=== PATIENT | male | born 1985 | race Two or more races ===

== ENCOUNTER 2018-04-13 10:23 | Emergency (ER) | payer OTHER ==
[~2018-04-13] VITALS: Ht 162.6 cm; Wt 63.5 kg
[2018-04-13 10:45] VITALS: BP 125/70
--- NOTE | 2018-04-13 10:54 | NUR ---
ED Nurse Note: pt walked in to ED due to injured on rigth lateral thigh by saw at work. deep and wide laceration noted. no active bleeding noted. irrigation done by EMT with NS without complication. AAO x4. respirations even and non-labored noted. will wait for the further order.
[2018-04-13] MEDS ORDERED: Lidocaine 1% 10mg/ml/Epi 0.005mg/ml 30ml vial INJ ONE (11:45)
[2018-04-13] MEDS ORDERED: Tetanus/Diptheria/Pertussis Vaccine 0.5ml Syr IM ONE (12:30)
--- NOTE | 2018-04-13 12:33 | Diagnostic Imaging Report ---
Indications: Pain Technique: Two views of the right femur Comparison: None Findings: No acute fractures. No dislocations. The joint spaces are preserved. There is a tiny superior pole patellar osteophyte. Impression: No acute process
[2018-04-13] MEDS ORDERED: Bacitracin Oint UD TOPIC ONE ×2 (13:39→13:45)
[2018-04-13] MEDS ORDERED: BACITRACIN-P28.35 GM TP (13:53)
[2018-04-13] MEDS ORDERED: CEPHALEXIN500 MG ORAL (13:53)
[2018-04-13] MEDS ORDERED: IBUPROFEN600 MG ORAL (13:53)
--- NOTE | 2018-04-13 13:54 | Emergency Room Report ---
History of Present Illness General Chief Complaint: Laceration Source: Patient, Family Member Present Illness HPI 33-year-old male patient presents ER complaining of laceration on right thigh. Reports sustained laceration while at work using a skill saw earlier today. Reports this is a Workmen's Compensation case. Reports he cut his right leg. Reports bleeding well controlled at this time. Denies history of HIV or hepatitis. Denies history of blood disease. Reports is not up-to-date on tetanus vaccination. Denies other aggravating or relieving factors. Denies pain with ambulation. Allergies: Coded Allergies: No Known Allergies (Unverified , 04/13/18) Patient History Past Medical History: see triage record Reviewed Nursing Documentation: PMH: Agreed; PSxH: Agreed Nursing Documentation-PMH Past Medical History: No Stated History Review of Systems All Other Systems: negative except mentioned in HPI Physical Exam Vital Signs Date Time Temp Pulse Resp B/P (MAP) Pulse Ox O2 Delivery O2 Flow Rate FiO2 04/13/18 10:37 97.9 54 16 125/70 97 Room Air Sp02 EP Interpretation: reviewed, normal General Appearance: well appearing, no apparent distress, alert, GCS 15, non- toxic Head: normocephalic, atraumatic Eyes: bilateral eye normal inspection, bilateral eye PERRL ENT: hearing grossly normal, normal pharynx, no angioedema, normal voice, uvula midline, moist mucus membranes Neck: full range of motion Respiratory: lungs clear, normal breath sounds, no rhonchi, no respiratory distress, no accessory muscle use, no wheezing, speaking full sentences Cardiovascular #1: regular rate, rhythm, no edema Cardiovascular #2: 2+ dorsalis pedis (R), 2+ dorsalis pedis (L) Musculoskeletal: back normal, digits/nails normal, gait/station normal, normal range of motion, non-tender Neurologic: alert, oriented x3, responsive, motor strength/tone normal, sensory intact Skin: laceration - 6 cm laceration on right lateral midshaft thigh, linear, superifical, no deep tendon or muscle exposure, fascia observed, no bone exposure, bleeding well controlled, no surrounding erythema or edema Procedures Laceration/Wound Repair Laceration/Wound Repair : Consent: Verbal Wound Location: lower extremity - Right thigh Wound's Depth, Shape: superficial Wound Length (cm): 6 Wound Explored: contaminated Irrigated w/ Saline (ccs): 20 Betadine Prep?: Yes Anesthesia: Lidocaine w/ Epi Volume Anesthetic (ccs): 5 Wound Debrided: extensive Wound Repaired With: sutures Suture Size/Type: 3:0, proline Number of Sutures: 9 Layer Closure?: No Sterile Dressing Applied?: Yes Splint Applied?: No Sling Applied?: No Patient Tolerated: Well Complications: None Medical Decision Making PA Attestation Dr. Melgar is my supervising Physician whom patient management has been discussed with. Diagnostic Impression: Primary Impression: Laceration ER Course Pt presents to ED c/o laceration on right thigh. DDX considered but are not limited to laceration, abrasion, contusion, cellulitis. VITAL SIGNS are WNL, patient is afebrile ED INTERVENTIONS: X-ray negative per the preliminary reading. Wound was cleaned and irrigated using copious normal saline. Local block using Lidocaine 1% with epi. Laceration repaired. See procedure note. 9 sutures placed. Wound cleaned and covered using sterile dressing and Bacitracin. Workmen's Compensation paperwork completed. ER precautions given. DISCHARGE: Rx provided for Keflex Rx provided for Bacitracin Rx provided for Ibuprofen At this time pt is stable for d/c to home. Patient resting comfortably, in no acute distress, nontoxic appearing, talking without difficulty. Will provide with patient care instructions and any necessary prescriptions. Patient to take medication as instructed. Care plan and follow-up instructions provided. Work note provided to patient. Patient questions asked and answered. Patient instructed to follow-up with primary care provider for wound check and suture removal. ER precautions given. Patient instructed to return to ER immediately for any new or worsening of symptoms. - Please note that this Emergency Department Report was dictated using [employer]chinteractive graphic designer technology software, occasionally this can lead to erroneous entry secondary to interpretation by the dictation equipment. Other X-Ray Diagnostic Results Other X-Ray Diagnostic Results : X-Ray ordered: right femur # of Views/Limited Vs Complete: 2 View Indication: Pain EP Interpretation: Yes TRISTIAN Xray: Interpretation reviewed, by supervising MD, and agrees with findings. Interpretation: no dislocation, no soft tissue swelling, no fractures Impression: No acute disease TRISTIAN Scribe Text Alonzo Gamez PA-C Last Vital Signs Date Time Temp Pulse Resp B/P (MAP) Pulse Ox O2 Delivery O2 Flow Rate FiO2 04/13/18 10:45 97.9 54 16 125/70 97 Room Air Status: improved Disposition: HOME, SELF-CARE Condition: Stable Scripts Ibuprofen* (MOTRIN*) 600 Mg Tablet 600 MG ORAL Q8H PRN for For Pain, #30 TAB 0 Refills Prov: Kenneth Gamez 04/13/18 Cephalexin* (KEFLEX*) 500 Mg Capsule 500 MG ORAL EVERY 12 HOURS, #14 CAP 0 Refills Prov: Kenneth Gamez 04/13/18 Bacitracin/Polymyxin B Sulfate (BACITRACIN-POLYMYXIN OINTMENT) 28.35 Gm Oint...g. 1 APPLIC TP BID, #28 GM Prov: Kenneth Gamez 04/13/18 Referrals: NOT CHOSEN IPA/,REFERRING (PCP) Patient Instructions: Laceration Care, Adult Additional Instructions: Patient instructed to follow-up with primary care provider in 2-3 days for wound check Suture removal in 10-14 days. Take medications as directed. Keep wound clean and dry. Patient questions asked and answered. ER precautions given, patient instructed to return to ER immediately for any new or worsening of symptoms. Kenneth Gamez Apr 13, 2018 13:54
[2018-04-13 14:18] VITALS: BP 114/78
--- NOTE | 2018-04-13 14:19 | NUR ---
ER DISCHARGE NOTE: Patient is cleared to be discharged per ERMD, pt is aox4, on room air, with stable vital signs. pt was given dc and prescription instructions, pt was able to verbalize understanding, pt id band removed. pt is able to ambulate with steady gait. pt took all belongings.
== END 2018-04-13 14:25 | disposition home or self-care (01) ==
LOC: EMR 11:30
DX: S71.111A Laceration without foreign body, right thigh, initial encounter (principal); W31.2XXA Contact with powered woodworking and forming machines, initial encounter; Z23 Encounter for immunization; Y93.89 Activity, other specified; Y99.0 Civilian activity done for income or pay
CPT/HCPCS: 90471; 90715; 99283